=== PATIENT | male | born 1955 | race Caucasian/White ===

== ENCOUNTER 2018-08-25 16:56 | Emergency (ER) | payer SELFPAY ==
[2018-08-25 17:03] VITALS: O2SAT 96
[2018-08-25 18:07] LABS: BASO # 0.1 K/uL (0.0-0.2); EOS # 0.4 K/uL (0.0-0.7); EOS % 4.2 % (0.0-4.0); HEMOGLOBIN 17.6 g/dL (12.0-18.0); LYMPH # 1.6 K/uL (1.0-4.3); LYMPH % 17.8 % (20.0-40.0); MEAN CORPUSCULAR HEMOGLOBIN 30.2 pg (27.0-31.0); MEAN CORPUSCULAR HGB CONC 34.5 g/dL (33.0-37.0); MEAN PLATELET VOLUME 9.2 fL (7.2-11.7); MONO # 0.9 K/uL (0.0-0.8); NEUT # 5.9 K/uL (1.8-7.0); NRBC % 0.2 % (0.0-2.0); RBC 5.82 Mil/uL (4.40-5.90); RED CELL DISTRIBUTION WIDTH 13.8 % (11.5-14.5); WHITE BLOOD COUNT 8.8 K/uL (4.8-10.8)
[2018-08-25 18:15] LABS: INR 1.1; PROTHROMBIN TIME 11.5 SECONDS (9.7-12.2)
[2018-08-25 18:18] LABS: MEAN CELL VOLUME 87.4 fL (80.0-94.0)
[2018-08-25 18:19] LABS: ALB/GLOB RATIO 1.3 (1.0-2.1); ALBUMIN 4.3 g/dL (3.5-5.0); ALT/SGPT 33 U/L (21-72); AST/SGOT 31 U/L (17-59); BLOOD UREA NITROGEN 14 mg/dL (9-20); CALCIUM 8.9 mg/dl (8.6-10.4); GFR NON-AFRICAN AMERICAN > 60
--- NOTE | 2018-08-25 18:29 | C.PDOC ---
History Of Present Illness 62 y/o M c PMHx HTN p/w dyspnea on exertion x 2 weeks. Patient notes that for 2 weeks, after walking one block, he feels short of breath and needs to rest. At rest, denies any dyspnea. Reports associated cough productive of white sputum. He also states he has been having intermittent vertigo for 2 weeks. Denies fever, nausea, vomiting, chest pain, palpitations. Time Seen by Provider: 08/25/18 17:10 Chief Complaint (Nursing): Shortness Of Breath Past Medical History Vital Signs: Last Vital Signs Temp 98.3 F 08/25/18 16:59 Pulse 100 H 08/25/18 16:59 Resp 20 08/25/18 17:24 BP 146/84 08/25/18 16:59 Pulse Ox 96 08/25/18 16:59 - Medical History PMH: HTN, Hyperlipidemia Family History: States: No Known Family Hx - Social History Hx Alcohol Use: Yes Hx Substance Use: Yes - Immunization History Hx Tetanus Toxoid Vaccination: Yes Hx Influenza Vaccination: Yes Hx Pneumococcal Vaccination: Yes Review Of Systems Except As Marked, All Systems Reviewed And Found Negative. Constitutional: Negative for: Fever Cardiovascular: Negative for: Chest Pain Physical Exam - Physical Exam Additional Physical Exam Comments: Gen: NAD Head: NC/AT Eyes: PERRL ENT: MMM. Positive [place]. Neck: Supple, no JVD Chest: No tenderness CV: Regular rate. No S3 Lungs: CTA b/l Abd: Soft, NT, obese Back: No CVA tenderness Extremities: Mild pitting edema of bilateral lower extremities Skin: No rash Neuro: Alert, no focal deficit ED Course And Treatment - Laboratory Results Result Diagrams: 08/25/18 17:57 08/25/18 17:57 O2 Sat by Pulse Oximetry: 96 Medical Decision Making Medical Decision Making: EKG Sinus rhythm, 105 bpm, no ST elevations. QRS 100ms. CXR no consolidation, no pulmonary edema, no pleural effusion. Enzymes/ProBNP negative. Patient in no distress. States has PMD, advised f/u, instructed to return to ED for worsening breathing or pain. Patient states vertigo is completely gone. Will prescribe Meclizine and have ENT f/u. Disposition - Disposition Referrals: Abhishek Gr MD [Staff Provider] - Disposition: HOME/ ROUTINE Disposition Time: 19:54 Condition: STABLE Prescriptions: Meclizine [Antivert] 25 mg PO TID PRN #20 tab PRN Reason: Dizziness Instructions: Vertigo (a Type of Dizziness), Shortness of Breath (Dyspnea) (DC) Forms: [employer] (Uzbek) - Clinical Impression Clinical Impression: Vertigo, Dyspnea
[2018-08-25 18:31] LABS: B-TYPE NATRIURETIC PEPTIDE 24.6 pg/mL (0-900); CK-MB 0.62 ng/mL (0.0-3.38)
[2018-08-25] MEDS ORDERED: Potassium Chloride 20 mEq ER Tab PO STA (19:54)
[2018-08-25] MEDS ORDERED: Potassium Chloride 20 mEq ER Tab PO ONE (20:02)
[2018-08-25 20:07] VITALS: BP 125/89; PULSE 99; RESP 16; TEMP 98.4
--- NOTE | 2018-08-26 10:16 | RAD ---
HISTORY: dyspnea on exertion COMPARISON: Chest x-ray performed 02/16/15 TECHNIQUE: Chest PA and lateral FINDINGS: LUNGS: Mild bibasilar atelectasis/infiltrates. Please note that chest x-ray has limited sensitivity for the detection of pulmonary masses. PLEURA: No significant pleural effusion identified. No definite pneumothorax . CARDIOVASCULAR: Cardiomegaly. Atherosclerotic calcifications present. OSSEOUS STRUCTURES: Degenerative changes. VISUALIZED UPPER ABDOMEN: Unremarkable. OTHER FINDINGS: None. IMPRESSION: Mild bibasilar atelectasis/infiltrates. Cardiomegaly. Study marked for PA review.
--- NOTE | 2018-08-26 11:53 | CARD ---
APPROVED REPORT Date of service: 08/25/2018 EKG Measurement Heart [id number] <Conclusion> Sinus tachycardia Incomplete right bundle branch block Borderline ECG
== END 2018-08-25 20:08 | disposition home or self-care (01) ==
LOC: C.ER 16:56
DX: R42 Dizziness and giddiness (principal); R06.00 Dyspnea, unspecified; I10 Essential (primary) hypertension; E78.5 Hyperlipidemia, unspecified; F17.210 Nicotine dependence, cigarettes, uncomplicated